=== PATIENT | female | born 1980 | race Caucasian/White ===

== ENCOUNTER → 2016-09-06 | Outpatient (CLI) | payer BC ==
--- NOTE | 2016-09-06 11:51 | US ---
Transabdominal and Transvaginal Pelvic Ultrasound Clinical History: 35-year-old female with multiple sclerosis and contact vaginal bleeding. The patien t's LMP was 08/16/2016, and she is 1 with no prior surgery history. ICD 10 Diagnostic Code: N93.0. TECHNIQUE: A curvilinear 5 MHz transducer was initially used to sonographically evaluate the pelvis, using a full urinary bladder as a window. To better assess the uterine architecture and the adnexal s tructures, endovaginal pelvic sonography was also performed. Color and spectral Doppler were used. Comparison: None available. Findings: Transabdominal Pelvic Sonography: The uterus is normal in size, shape, and position, measuring 7.0 x 5.0 x 4.5 cm. The right and left adnexal structures are excluded by bowel gas. There is no free fluid . The visualized portions of the bladder are normal. Transvaginal Pelvic Sonography: The endometrium is homogeneous, and measures 4.3 mm. The right ovary measures 1.8 x 0.6 x 1.9 cm, and the left ovary measures 1.4 x 2.2 x 2.2 cm. Normal arterial blood fl ow is documented to both ovaries by Doppler ultrasound. Impression: Normal pelvic ultrasound.
== END ==
LOC: FIMAGING 10:26
PROVIDERS: ATTEND Obstetrics & Gynecology
DX: N93.0 Postcoital and contact bleeding (principal); G35 Multiple sclerosis

== ENCOUNTER → 2018-11-20 | Outpatient (CLI) | payer BC | LOC: FIMAGING 12:05 | PROVIDERS: ATTEND Internal Medicine | DX: Z12.31 Encounter for screening mammogram for malignant neoplasm of breast (principal) ==